=== PATIENT | male | born 1995 | race African-American/Black ===

== ENCOUNTER 2023-04-14 20:45 | Emergency (ER) | payer MEDICAID ==
[~2023-04-14] VITALS: Ht 175.3 cm; Wt 70.0 kg
[2023-04-14 21:51] VITALS: BP 131/85
== END 2023-04-15 01:50 | disposition left against medical advice (07) ==
LOC: ER 20:45
DX: T78.40XA Allergy, unspecified, initial encounter (principal); Z53.21 Procedure and treatment not carried out due to patient leaving prior to being seen by health care provider; X58.XXXA Exposure to other specified factors, initial encounter
CPT/HCPCS: 99281